=== PATIENT | male | born 2005 | race Caucasian/White ===

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

== ENCOUNTER 2023-11-11 18:29 | Emergency (ER) | payer OTHER, BC ==
[2023-11-11] MEDS: Take Home: Acetaminophen/HYDROcodone 325-5 MG, 5 Tab Pack PO ONE (21:11)
[2023-11-11] MEDS: Lidocaine 1% 10 ML MDV INJECT ONE (21:12)
[2023-11-11] MEDS: Diphtheria,Pertussis(Acell),Tetanus Vaccine 0.5 ML Syringe IM ONE (21:19)
== END 2023-11-11 21:21 | disposition home or self-care (01) ==
LOC: VM.ED 18:29
DX: S02.2XXA Fracture of nasal bones, initial encounter for closed fracture (principal); S01.511A Laceration without foreign body of lip, initial encounter; W00.9XXA Unspecified fall due to ice and snow, initial encounter
CPT/HCPCS: 12011; 70486; 90471; 90715; 99283-25; A9270-GY; J3490